=== PATIENT | male | born 1995 | race Two or more races ===

== ENCOUNTER 2019-02-10 15:02 | Emergency (ER) | payer MEDICAID, OTHER ==
[~2019-02-10] VITALS: Ht 172.7 cm; Wt 90.7 kg
--- NOTE | 2019-02-10 15:21 | NUR ---
PT SELF PRESENTS TO ER. AMBULATORY TO ER BED 11 C/O AUDITORY HALLUCINATION TELLING HIM TO KILL HIMSELF BY SLITTING HIS THROAT. INTENTION LEVY NOTED. PT PLACED ON SI PRECAUTION. GOWNED. SITTER AT BEDSIDE. AWAITING MD CELAYA.
--- NOTE | 2019-02-10 15:22 | NUR ---
[employer] PROFESSOR AT BEDSIDE FOR EVAL.
[2019-02-10] MEDS: LORAZEPAM 1 MG TABLET PO ONE ×2 (15:26→15:54)
[2019-02-10] MEDS ORDERED: OLANZAPINE 5 MG TABLET PO ONE (15:30)
--- NOTE | 2019-02-10 15:32 | NUR ---
SHANK THREADER AT BEDSIDE FOR BLOOD DRAW.
[2019-02-10] MEDS ORDERED: OLANZAPINE 5 MG TABLET ONE (15:35)
[2019-02-10] MEDS ORDERED: LORAZEPAM 1 MG TABLET ONE (15:35)
[2019-02-10 15:49] LABS: BASOPHILS % (AUTO) 0.5 % (0.0-2.0); EOSINOPHILS % (AUTO) 0.9 % (0.0-6.0); HEMATOCRIT 44 % (39-51); HEMOGLOBIN 14.8 g/dL (13.5-17.5); LYMPHOCYTES % (AUTO) 25.5 % (20.0-44.0); MEAN CORPUSCULAR HGB CONC 34 g/dl (31.0-36.0); MEAN CORPUSCULAR VOLUME 87 fL (80-96); MONOCYTES # (AUTO) 0.6 /CMM (0.1-1.30); MONOCYTES % (AUTO) 7.5 % (2.0-12.0); NEUTROPHILS # (AUTO) 5.2 /CMM (1.8-8.9); NEUTROPHILS % (AUTO) 65.6 % (43.0-81.0); PLATELET COUNT (AUTO) 261 /CMM (150-450); WHITE BLOOD COUNT (AUTO) 7.9 K/uL (4.3-11.0)
[2019-02-10 16:04] LABS: CALCIUM, SERUM 8.9 mg/dL (8.5-10.1); CARBON DIOXIDE 25 mmol/L (21-32); CHLORIDE 105 mmol/L (98-107); GLUCOSE 90 mg/dL (74-106); SODIUM SERUM 139 mmol/L (136-145); UREA NITROGEN, BLOOD 7 mg/dL (7-18)
[2019-02-10 16:05] LABS: APPEARANCE,URINE Clear (CLEAR); BILIRUBIN,URINE Negative (NEGATIVE); BLOOD, URINE Negative Ery/uL (NEGATIVE); COLOR,URINE Yellow (YELLOW); KETONES,URINE Trace (NEGATIVE); LEUKOCYTE ESTERASE ,URINE Negative (NEGATIVE); NITRITE, URINE Negative (NEGATIVE); PROTEIN,URINE Negative (NEGATIVE); UGLUCOSE Negative (NEGATIVE); UROBILINOGEN,URINE 0.2 EU/dL (0.2)
[2019-02-10 16:15] LABS: ACETAMINOPHEN 0 ug/ml (10-30); ALANINE AMINOTRANSFERASE 23 U/L (12-78); ALCOHOL, BLOOD < 3 mg/dL (0-0); ALKALINE PHOSPHATASE 73 U/L (46-116); ASPARTATE AMINOTRANSFERASE 13 U/L (15-37); BILIRUBIN,DIRECT 0.2 mg/dL (0.0-0.2); BILIRUBIN,TOTAL 0.5 mg/dL (0.2-1.0); SALICYLATE 2.5 mg/dL (2.8-20.0); TOTAL PROTEIN, SERUM 7.8 g/dL (6.4-8.2)
[2019-02-10 16:19] LABS: BACTERIA,URINE Few /HPF (None Seen); RBC,URINE 0-2 /HPF (0-2); SQUAMOUS EPITHELIAL CELL,UR Few /HPF (None Seen); WBC,URINE 0-2 /HPF (0-3)
--- NOTE | 2019-02-10 16:30 | NUR ---
CALLED [facility] FOR PSYCH EVAL. NO ETA GIVEN.
--- NOTE | 2019-02-10 17:25 | NUR ---
LUBNA MEREDITH CALLED FOR PSYCH EVAL. ETA [phone]
[2019-02-10 17:30] VITALS: BP 128/66
--- NOTE | 2019-02-10 18:00 | NUR ---
LUBNA RN AT BEDSIDE FOR PSYCH EVAL.
--- NOTE | 2019-02-10 19:17 | NUR ---
REPORT TO CINDY MEREDITH FOR [facility].
--- NOTE | 2019-02-10 20:35 | NUR ---
CALLED [facility], ETA [phone], NO TRIP # DUE TO COMPUTERS BEING DOWN
--- NOTE | 2019-02-10 22:51 | NUR ---
TRIED CALLING FOR REPORT. WAS TOLD TO CALL BACK LATER
--- NOTE | 2019-02-10 23:47 | NUR ---
REPORT GIVEN TO BRITTANIE MEREDITH.
== END 2019-02-11 01:13 | disposition short-term general hospital (02) ==
LOC: ER 15:11
DX: R45.851 Suicidal ideations (principal); F23 Brief psychotic disorder
CPT/HCPCS: 36415; 80048; 80076; 80305; 80307; 80329; 81001; 85025; 99285; G0480; 81000-TC